=== PATIENT | female | born 1965 ===

== ENCOUNTER → 2021-09-02 15:10 | Outpatient (BNVA) | payer OTHER, SELFPAY | PROVIDERS: PCP Pediatrics; Visit Provider Obstetrics & Gynecology ==

== ENCOUNTER → 2022-02-21 14:49 | Outpatient (BNVA) | payer OTHER, SELFPAY | PROVIDERS: PCP Pediatrics | DX: R32 Unspecified urinary incontinence (principal); N81.4 Uterovaginal prolapse, unspecified | CPT/HCPCS: 51798; 57160 ==